=== PATIENT | female | born 1975 | race Caucasian/White ===

== ENCOUNTER 2017-03-01 13:38 | Emergency (ER) | payer MEDICAID, OTHER ==
[2017-03-01 13:40] VITALS: BMI 27.1
[2017-03-01 13:44] VITALS: RESP 18; TEMP 97.2
[2017-03-01] MEDS ORDERED: Sodium Chloride 0.9% 1,000 ML IV ONE (14:05)
[2017-03-01] MEDS ORDERED: Sodium Chloride 0.9% 1,000 ML ONE (15:10)
[2017-03-01 15:12] LABS: BASO % 0.2 % (0.0-2.0); EOS % 0.7 % (0.0-4.0); HEMATOCRIT 41.4 % (34.0-47.0); LYMPH # 0.6 K/uL (1.0-4.3); LYMPH % 10.5 % (20.0-40.0); MEAN CELL VOLUME 88.7 fL (81.0-99.0); MEAN CORPUSCULAR HGB CONC 32.7 g/dL (33.0-37.0); MEAN PLATELET VOLUME 8.8 fL (7.2-11.7); MONO # 0.2 K/uL (0.0-0.8); MONO % 3.5 % (0.0-10.0); RED CELL DISTRIBUTION WIDTH 12.9 % (11.5-14.5); WHITE BLOOD COUNT 5.8 K/uL (4.8-10.8)
[2017-03-01 15:29] LABS: RBC URINE 3 /hpf (0-3); URINE BACTERIA RARE (<OCC); URINE BILIRUBIN NEGATIVE (NEGATIVE); URINE BLOOD NEGATIVE (NEGATIVE); URINE COLOR Yellow (YELLOW); URINE GLUCOSE (UA) NORMAL (Normal); URINE KETONE TRACE mg/dL (NEGATIVE); URINE LEUKOCYTE ESTERASE NEG Leu/uL (Negative); URINE PROTEIN NEGATIVE (NEGATIVE); URINE UROBILINOGEN NORMAL mg/dL (0.2-1.0); WBC URINE 2 /hpf (0-5)
[2017-03-01 15:52] LABS: CHLORIDE 100 mmol/L (98-107)
[2017-03-01 15:53] LABS: SODIUM 137 mmol/L (132-148)
[2017-03-01 15:57] LABS: ALB/GLOB RATIO 1.5 (1.0-2.1); AST/SGOT 24 U/L (14-36); CARBON DIOXIDE 26 mmol/L (22-30); GFR AFRICAN-AMERICAN > 60; TOTAL PROTEIN 7.8 g/dL (6.3-8.3)
[2017-03-01 15:58] LABS: ALKALINE PHOSPHATASE 51 U/L (38-126); ALT/SGPT 20 U/L (9-52); BLOOD UREA NITROGEN 12 mg/dL (7-17); CALCIUM 8.9 mg/dl (8.6-10.4); GLUCOSE,RANDOM 88 mg/dL (65-105)
--- NOTE | 2017-03-01 15:59 | US ---
HISTORY: upper abdominal pain COMPARISON: None. TECHNIQUE: Sonographic evaluation of the abdomen. FINDINGS: LIVER: Measures cm. Increased echogenicity of the liver parenchyma. No mass. No intrahepatic bile duct dilatation. GALLBLADDER: Unremarkable. No gallstones. COMMON BILE DUCT: Measures mm. No stones. No dilatation. PANCREAS: Unremarkable as visualized. No mass. No ductal dilatation. RIGHT KIDNEY: Measures cm. Normal echogenicity. No , mass, or hydronephrosis. 8 mm stone ipper pole. LEFT KIDNEY: Measures cm. Normal echogenicity. No calculus, mass, or hydronephrosis. SPLEEN: Normal in size and contour. No mass. AORTA: No aneurysmal dilatation. IVC: Unremarkable. OTHER FINDINGS: None. IMPRESSION: Pole.Fatty liver. Right tenal stone..
--- NOTE | 2017-03-01 17:00 | C.PDOC ---
History Of Present Illness 41-year-old female, presents to the emergency department with complaints of upper abdominal pain, that is associated with nausea and two episodes of non- bilious/non-bloody vomiting. Patient notes sick contacts at home with similar symptoms. No recent travel. No change in food consumption. Patient has a Hx of pancreatitis in the past, but states this does not feel consistent to that. She notes mild epigastric pain. Chief Complaint (Nursing): Abdominal Pain History Per: Patient History/Exam Limitations: no limitations Onset/Duration Of Symptoms: Days Current Symptoms Are (Timing): Still Present Severity: Moderate Past Medical History Reviewed: Historical Data, Nursing Documentation, Vital Signs Vital Signs: Last Vital Signs Temp 97.2 F L 03/01/17 13:41 Pulse 68 03/01/17 17:05 Resp 18 03/01/17 17:05 BP 116/55 L 03/01/17 17:05 Pulse Ox 98 03/01/17 17:05 - Medical History PMH: Denies: Chronic Kidney Disease - [facility] Procedures INJECT/INFUSE NEC (10/04/03) MANUAL ASSIST DELIV NEC (03/03/15) OTHER SKIN & SUBQ I D (11/18/04) REPAIR OB LACERATION NEC (03/03/15) Family History: States: Unknown Family Hx - Social History Hx Tobacco Use: No Hx Alcohol Use: No Hx Substance Use: No - Immunization History Hx Tetanus Toxoid Vaccination: Yes Hx Influenza Vaccination: No Hx Pneumococcal Vaccination: No Review Of Systems Except As Marked, All Systems Reviewed And Found Negative. Constitutional: Negative for: Fever Cardiovascular: Negative for: Chest Pain Respiratory: Negative for: Shortness of Breath Gastrointestinal: Positive for: Nausea, Vomiting, Abdominal Pain Physical Exam - Physical Exam Appears: Non-toxic, No Acute Distress Skin: Warm, Dry, No Rash Head: Atraumatic, Normacephalic Eye(s): bilateral: Normal Inspection, PERRL Nose: Normal Oral Mucosa: Moist Lips: Normal Appearing Neck: Normal ROM Cardiovascular: Rhythm Regular Respiratory: Normal Breath Sounds, No Accessory Muscle Use Gastrointestinal/Abdominal: Soft, Tenderness (mild, epigastric) Extremity: Normal ROM Neurological/Psych: Oriented x3, Normal Speech ED Course And Treatment - Laboratory Results Result Diagrams: 03/01/17 15:05 03/01/17 15:05 O2 Sat by Pulse Oximetry: 97 Disposition - Disposition Referrals: [facility], [Non-Staff] - Disposition: HOME/ ROUTINE Disposition Time: 16:15 Condition: IMPROVED Additional Instructions: Thank you for letting us take care of you today. Your provider was Dr. Cage. You were treated for gastritis. The emergency medical care you received today was directed at your acute symptoms. If you were prescribed any medication, please fill it and take as directed. It may take several days for your symptoms to resolve. Return to the Emergency Department if your symptoms worsen, do not improve, or if you have any other problems. Please contact your doctor or call one of the physicians/clinics you have been referred to that are listed on the Patient Visit Information form that is included in your discharge packet. Bring any paperwork you were given at discharge with you along with any medications you are taking to your follow up visit. Our treatment cannot replace ongoing medical care by a primary care provider (PCP) outside of the emergency department. Thank you for allowing the [facility] team to be part of your care today. Follow up with your doctor in 2-3 days for re-evaluation. Prescriptions: Ranitidine HCl [Zantac] 150 mg PO BID #20 tablet Instructions: Gastritis (ED) - Clinical Impression Clinical Impression: Viral syndrome - Scribe Statement The provider has reviewed the documentation as recorded by the Janette Domingo All medical record entries made by the Kiranibe were at my direction and personally dictated by me. I have reviewed the chart and agree that the record accurately reflects my personal performance of the history, physical exam, medical decision making, and the department course for this patient. I have also personally directed, reviewed, and agree with the discharge instructions and disposition.
[2017-03-01 17:05] VITALS: BP 116/55; PULSE 68
[2017-03-01 22:21] VITALS: O2SAT 97
== END 2017-03-01 17:05 | disposition home or self-care (01) ==
LOC: C.ER 13:38
DX: B34.9 Viral infection, unspecified (principal)
CPT/HCPCS: 76700; 80053; 81001; 83690; 85025; 87086; 96361; 96374; 96375; 99284; J2405; J7040